=== PATIENT | male | born 1990 | race Caucasian/White ===

== ENCOUNTER 2017-04-09 17:49 | Emergency (ER) | payer OTHER ==
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
--- NOTE | 2017-04-10 | ED ORDER SUMMARY ---
..... Patient: OVI GREGG OrderSheet [facility] VisitID: [id number] [address] [place] [address] 26y, M Registration Date/Time: 04/09/2017 ORDER SHEET Weight: 127.0 kg Allergies: No Known Drug Allergy GENERAL ORDERS: Urine Drug Screen Urgent (19:08 04/09/2017 Anand Gastelum) (Ack 19:21 IJurca ER Tech1) (20:23 Lloyd R.N.) Breathalyzer (19:08 04/09/2017 Anand Gastelum) (Ack 19:14 RKaruga) (21:04 RKamber) MEDICATION ORDERS: Diazepam PO 10 mg (HIGH ALERT MEDICATION, NOW) (18:18 04/09/2017 Anand Gastelum) (Ack 18:28 Lloyd R.N.) (18:31 Lloyd R.N.) Motrin PO 800 mg (NOW) (21:02 04/09/2017 Anand Gastelum) IV FLUIDS: ORDER SHEET NOTES: This document has not been locked and should not be saved in the medical record.
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
--- NOTE | 2017-04-10 | ED ORDER SUMMARY ---
..... Patient: OVI GREGG OrderSheet [facility] VisitID: [id number] [address] [place] [address] 26y, M Registration Date/Time: 04/09/2017 ORDER SHEET Weight: 127.0 kg Allergies: No Known Drug Allergy GENERAL ORDERS: Urine Drug Screen Urgent (19:08 04/09/2017 Anand Gastelum) (Ack 19:21 IJurca ER Tech1) (20:23 Lloyd R.N.) Breathalyzer (19:08 04/09/2017 Anand Gastelum) (Ack 19:14 RKaruga) (21:04 RKamber) MEDICATION ORDERS: Diazepam PO 10 mg (HIGH ALERT MEDICATION, NOW) (18:18 04/09/2017 Anand Gastelum) (Ack 18:28 Lloyd R.N.) (18:31 Lloyd R.N.) Motrin PO 800 mg (NOW) (21:02 04/09/2017 Anand Gastelum) IV FLUIDS: ORDER SHEET NOTES: This document has not been locked and should not be saved in the medical record.
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
--- NOTE | 2017-04-11 08:29 | ED MED RECONCILIATION SUMMARY ---
Patient: OVI GREGG Medication Reconciliation Report [facility] VisitID: [id number] [address] [place] [address] 26y, M Registration Date/Time: 04/09/2017 Weight: 127.0 kg Height/Length: 72 in. BMI: 38.0 ALLERGIES: No Known Drug Allergy The patient's Home Medications are listed below: NONE. The source(s) of the original Home Medication information: patient The following Medications were given to the patient in the Emergency Department: Diazepam [PO] PO 10 mg, administered: 04/09/2017 6:31:00 PM Motrin [PO] PO 800 mg, administered: 04/09/2017 9:15:00 PM The following Medications were prescribed to the patient: Alprazolam 0.25 mg: take 1-2 orally every 8 hours as needed for anxiety or sleep. Dispense fifteen (15). No refill. -- Prince Ocampo MD
--- NOTE | 2017-04-11 08:29 | ED MAR SUMMARY ---
..... Medication Administration Record [facility] [address] [place] [address] Patient: OVI GREGG Visit ID: [id number] 26y, M Weight: 127.0 kg Height/Length: 72 in BMI: 38 ALLERGIES: No Known Drug Allergy Given 18:31 04/09/2017 Darryl Hopkins R.N. Medication Administered: DIAZEPAM [PO] (DIAZEPAM), Dose: 10 mg Tablets PO. Medication Ordered: Diazepam PO 10 mg (HIGH ALERT MEDICATION, NOW). Given 21:15 04/09/2017 Darryl Hopkins RHamidaNHamida Medication Administered: MOTRIN [PO], Dose: 800 mg Tablets PO. Medication Ordered: Motrin PO 800 mg (NOW).
--- NOTE | 2017-04-11 08:29 | ED MAR SUMMARY ---
..... Medication Administration Record [facility] [address] [place] [address] Patient: OVI GREGG Visit ID: [id number] 26y, M Weight: 127.0 kg Height/Length: 72 in BMI: 38 ALLERGIES: No Known Drug Allergy Given 18:31 04/09/2017 Darryl Hopkins R.N. Medication Administered: DIAZEPAM [PO] (DIAZEPAM), Dose: 10 mg Tablets PO. Medication Ordered: Diazepam PO 10 mg (HIGH ALERT MEDICATION, NOW). Given 21:15 04/09/2017 Darryl Hopkins RHamidaNHamida Medication Administered: MOTRIN [PO], Dose: 800 mg Tablets PO. Medication Ordered: Motrin PO 800 mg (NOW).
--- NOTE | 2017-04-11 08:29 | ED MED RECONCILIATION SUMMARY ---
Patient: OVI GREGG Medication Reconciliation Report [facility] VisitID: [id number] [address] [place] [address] 26y, M Registration Date/Time: 04/09/2017 Weight: 127.0 kg Height/Length: 72 in. BMI: 38.0 ALLERGIES: No Known Drug Allergy The patient's Home Medications are listed below: NONE. The source(s) of the original Home Medication information: patient The following Medications were given to the patient in the Emergency Department: Diazepam [PO] PO 10 mg, administered: 04/09/2017 6:31:00 PM Motrin [PO] PO 800 mg, administered: 04/09/2017 9:15:00 PM The following Medications were prescribed to the patient: Alprazolam 0.25 mg: take 1-2 orally every 8 hours as needed for anxiety or sleep. Dispense fifteen (15). No refill. -- Prince Ocampo MD
== END 2017-04-10 00:30 | disposition home or self-care (01) ==
LOC: ED SRH 17:49
DX: S00.93XA Contusion of unspecified part of head, initial encounter (principal); F41.8 Other specified anxiety disorders; F51.05 Insomnia due to other mental disorder; V43.52XA Car driver injured in collision with other type car in traffic accident, initial encounter; Y93.84 Activity, sleeping; Y92.9 Unspecified place or not applicable; Y99.9 Unspecified external cause status; F17.200 Nicotine dependence, unspecified, uncomplicated
CPT/HCPCS: 92760; 92761; 92762; 92763; 92764; 92765; 92766; 92767